=== PATIENT | female | born 1995 | race Caucasian/White ===

== ENCOUNTER 2019-03-11 16:38 | Emergency (ER) | payer MEDICAID ==
[~2019-03-11] VITALS: Ht 149.9 cm; Wt 37.0 kg
[~2019-03-11 16:38] MED LIST: HYDR28CR14 TOP
[2019-03-11 16:42] VITALS: BP 118/76
[2019-03-11] MEDS ORDERED: MICO45CR11 VG (17:15)
== END 2019-03-11 17:51 | disposition home or self-care (01) ==
LOC: ER 16:39
DX: B37.9 Candidiasis, unspecified (principal); Z79.899 Other long term (current) drug therapy
CPT/HCPCS: 99282

== ENCOUNTER 2020-11-21 17:26 | Emergency (ER) | payer MEDICAID ==
[~2020-11-21] VITALS: Ht 144.8 cm; Wt 42.5 kg
[2020-11-21 19:09] LABS: URINE HCG NEGATIVE (NEG)
[2020-11-21 19:28] LABS: COLOR,URINE YELLOW (Yellow); GLUCOSE, URINE NEGATIVE (Neg); KETONES,URINE NEGATIVE (Neg); LEUKOCYTE ESTERASE ,URINE MODERATE (Neg); NITRITES, URINE NEGATIVE (Neg); OCCULT BLOOD,URINE SMALL (Neg); PH,URINE 5.5 (4.8-8.0); PROTEIN,URINE NEGATIVE (Neg)
[2020-11-21 19:29] LABS: CLARITY,URINE SLIGHTLY CLOUDY (Clear); UA COLLECTION TYPE CLN CATCH MIDSTREAM
[2020-11-21 19:45] LABS: BACTERIA,URINE 2+ /HPF (Neg); MUCUS STRANDS MODERATE /LPF (Neg); RBC,URINE 0-2 /HPF (0-2); SQUAMOUS EPITHELIAL CELL,UR FEW /LPF (FEW)
--- NOTE | 2020-11-21 20:25 | NUR ---
ANGEL Walker at bedside accompanied by RN for vaginal exam.
[2020-11-21] MEDS ORDERED: metroNIDAZOLE 500mg tablet PO ONE (21:40)
--- NOTE | 2020-11-21 22:00 | NUR ---
Flagyl dose confirmed with ANGEL Walker. Patient verbalized understanding of instruction not to drink alcohol for several days due to medication.
[2020-11-21 22:01] VITALS: BP 127/67
== END 2020-11-21 22:06 | disposition home or self-care (01) ==
LOC: ER 17:27
DX: N39.0 Urinary tract infection, site not specified (principal); N89.8 Other specified noninflammatory disorders of vagina; Z72.89 Other problems related to lifestyle; Z79.899 Other long term (current) drug therapy
CPT/HCPCS: 36415; 81001; 81025; 87077; 87088; 87186; 87210; 87491; 87591; 99284; Q0112; J3490

== ENCOUNTER 2021-07-07 18:38 | Emergency (ER) | payer MEDICAID ==
[~2021-07-07] VITALS: Ht 149.9 cm; Wt 40.9 kg
[2021-07-07 18:42] VITALS: BP 112/78
[2021-07-07 19:20] LABS: URINE HCG NEGATIVE (NEG)
[2021-07-07 19:38] LABS: CLARITY,URINE CLEAR (Clear); COLOR,URINE YELLOW (Yellow); UA COLLECTION TYPE CLN CATCH MIDSTREAM
[2021-07-07 19:39] LABS: GLUCOSE, URINE NEGATIVE (Neg); KETONES,URINE NEGATIVE (Neg); LEUKOCYTE ESTERASE ,URINE NEGATIVE (Neg); NITRITES, URINE NEGATIVE (Neg); OCCULT BLOOD,URINE NEGATIVE (Neg); PROTEIN,URINE NEGATIVE (Neg); UROBILINOGEN,URINE 0.2 E.U/dL (0.2-1.0)
[2021-07-07] MEDS ORDERED: NAPR-56 PO (19:42)
== END 2021-07-07 20:17 | disposition home or self-care (01) ==
LOC: ER 18:38
DX: R30.0 Dysuria (principal); R10.30 Lower abdominal pain, unspecified
CPT/HCPCS: 81003; 81025; 99283

== ENCOUNTER 2023-06-27 14:54 | Outpatient (CLI) | payer MEDICAID | END 2023-06-27 23:59 | disposition home or self-care (01) | LOC: RAD 14:54 | PROVIDERS: ATTEND Physician Assistant | DX: O20.0 Threatened abortion (principal); Z3A.00 Weeks of gestation of pregnancy not specified | CPT/HCPCS: 76801; 76817 ==

== ENCOUNTER 2023-06-27 15:35 | Emergency (ER) | payer MEDICAID ==
[~2023-06-27] VITALS: Ht 149.9 cm; Wt 45.0 kg
[2023-06-27 15:58] VITALS: BP 131/82; PULSE 82; RESP 18; TEMP 97.6; O2SAT 99
[2023-06-27 16:29] LABS: BILIRUBIN,URINE NEGATIVE (Neg); CLARITY,URINE CLOUDY (Clear); COLOR,URINE YELLOW (Yellow); GLUCOSE, URINE NEGATIVE (Neg); KETONES,URINE NEGATIVE (Neg); LEUKOCYTE ESTERASE ,URINE NEGATIVE (Neg); NITRITES, URINE NEGATIVE (Neg); OCCULT BLOOD,URINE SMALL (Neg); PROTEIN,URINE NEGATIVE (Neg); UA COLLECTION TYPE CLN CATCH MIDSTREAM; UROBILINOGEN,URINE 0.2 E.U/dL (0.2-1.0)
[2023-06-27 16:38] LABS: SQUAMOUS EPITHELIAL CELL,UR MANY /LPF (FEW); STARCH,URINE FEW /HPF (NEGATIVE)
[2023-06-27 16:39] LABS: BACTERIA,URINE FEW /HPF (Neg); RBC,URINE 0-2 /HPF (0-2); WBC,URINE 0-4 /HPF (0-4)
[2023-06-27 18:44] LABS: BASOPHILS # (AUTO) 0.1 X10'3 (0-0.2); BASOPHILS % (AUTO) 0.7 % (0-1); EOSINOPHILS # (AUTO) 0.2 X10'3 (0-0.9); EOSINOPHILS % (AUTO) 1.5 % (0-6); HEMATOCRIT 43.2 % (35.0-45.0); HEMOGLOBIN 14.6 g/dl (12.0-16.0); LYMPHOCYTES % (AUTO) 28.7 % (21-51); MEAN CORPUSCULAR HEMOGLOBIN 30.9 PG (27.0-31.0); MEAN CORPUSCULAR HGB CONC 33.9 g/dL (33.0-36.5); MEAN CORPUSCULAR VOLUME 91.1 FL (78-98); MEAN PLATELET VOLUME 7.7 FL (7.4-10.4); MONOCYTES # (AUTO) 0.7 X10'3 (0-0.9); MONOCYTES % (AUTO) 6.7 % (2-12); NEUTROPHILS # (AUTO) 6.6 X10'3 (1.8-7.7); NEUTROPHILS % (AUTO) 62.4 % (42-75); PLATELET COUNT 303 X10'3 (140-440); RED BLOOD COUNT 4.73 X10'6 (4.20-5.60); RED CELL DISTRIBUTION WIDTH 13.8 % (11.5-14.5); WHITE BLOOD COUNT 10.5 X10'3 (4.5-11.0)
[2023-06-27 18:58] LABS: ALANINE AMINOTRANSFERASE 11 U/L (12-78); ALBUMIN 4.2 G/DL (3.4-5.0); ALBUMIN/GLOBULIN RATIO 1.1 (1.1-1.5); ALKALINE PHOSPHATASE 70 IU/L (46-116); ANION GAP 10 (8-16); ASPARTATE AMINO TRANSFERASE 18 U/L (10-37); BILIRUBIN,TOTAL 0.7 MG/DL (0.1-1.0); BLOOD UREA NITROGEN 7 MG/DL (7-18); BUN/CREATININE RATIO 9.9 (10.0-20.0); CALCIUM 9.2 MG/DL (8.5-10.1); CHLORIDE 104 MMOL/L (99-107); CREATININE 0.71 MG/DL (0.40-0.90); GLUCOSE 91 MG/DL (70-104); POTASSIUM 3.7 MMOL/L (3.5-5.1); SODIUM 139 MMOL/L (135-145); TOTAL CARBON DIOXIDE 25.4 MMOL/L (24-32); TOTAL PROTEIN 8.1 G/DL (6.4-8.2); eCRCL 81 ML/MIN; eGFR > 90 ML/MIN
[2023-06-27 19:07] LABS: LIPASE 33 U/L (16-77)
[2023-06-27 19:13] LABS: BETA HCG,QUANTITATIVE 10 mIU/ml
== END 2023-06-27 20:14 | disposition home or self-care (01) ==
LOC: ER 15:36
DX: O20.0 Threatened abortion (principal)
CPT/HCPCS: 36415; 80053; 81001; 83690; 84702; 85025; 99283